=== PATIENT | female | born 1975 | race Caucasian/White ===

== ENCOUNTER 2017-02-13 21:16 | Emergency (ER) | payer OTHER ==
[~2017-02-13] VITALS: Ht 167.6 cm; Wt 98.4 kg
--- NOTE | ~2017-02-13 | CR72 ---
[facility] A Service of [facility] & [facility] RADIOLOGY TEXT RESULTS PATIENT: ELLEN DIXON LOCATION: SED : 73 UNIT #: [id number] AGE: [address]: Master Armstrong MD SEX: F ORDER DR: [id number] [address] [address] [id number] E MR#: [id number] Acc #: [id number] NAME: ELLEN DIXON. : 1975 SEX: F STUDY DATE/TIME: 02/13/2017 21:41 UNIT: SED ROOM: STUDY DESCRIPTION: CR Chest Single View Portable Attending Physician: Master Armstrong M.D. Ordering Physician: Master Armstrong M.D. Primary Care Physician: Van Chang M.D. MEDICAL IMAGING REPORT This report is preliminary unless electronic signature is present. EXAMINATION AP portable chest. DATE 02/13/2017 HISTORY 41-year-old female with chest pain tonight. COMPARISON PA and lateral chest, 06/20/2007. FINDINGS A single AP view of the chest shows both lungs to be clear. The heart is normal in size. The mediastinal contour is normal. No significant bone abnormalities are seen. IMPRESSION Normal AP portable chest. Dictated by... Sandra Mcbride M.D. THIS IS AN ELECTRONICALLY VERIFIED REPORT Sandra Mcbride M.D. at 02/16/2017 8:38 AM CALLIE/krystina TD: 02/14/2017 18:22 JOB #: [id number] MEDICAL IMAGING REPORT Page 1 of 1
--- NOTE | ~2017-02-13 | EKG ---
PATIENT: ELLEN DIXON UNIT #: [id number] Ventricular Rate: 77 BPM Atrial Rate: 77 BPM P-R Interval: 154 ms QRS Duration: 80 ms Q-T Interval: 388 ms QTC Calculation(Bezet): 439 ms P [place]: 46 degrees Calculated R [place]: 55 degrees Calculated T [place]: 34 degrees Diagnosis Line: Normal sinus rhythm Diagnosis Line: Normal ECG Diagnosis Line: No previous ECGs available Diagnosis Line: Confirmed by ISAMAR MIMS MD ([id number]) on Diagnosis Line: 02/16/2017 9:59:59 PM INTERPRETING MD: KELLEY
[~2017-02-13 21:16] MED LIST: A/T/S 2% GEL30 GM TOP; AURALGAN OTIC S10 M1 AD; CLEOCIN150 M1 PO; MOTRIN600 M1 PO; MUCINEX; NO MEDICATIONS; PHENERGAN PO; PREDNISONE PO; VICODIN 5/500 T1 TAB PO; VOLTAREN50 MG PO; ZITHROMAX PO
[2017-02-13] MEDS ORDERED: MAGNESIUM250 M1 (21:24)
[2017-02-13] MEDS ORDERED: PAXIL30 MG (21:24)
[2017-02-13 21:41] LABS: BASOPHIL# 0.1 X10e3 (0-0.3); BASOPHIL% 1.2 % (0-2.5); EOSINOPHIL# 0.3 X10e3 (0-0.7); EOSINOPHIL% 3.1 % (0.0-7.0); HEMATOCRIT 38.9 % (35.0-45.0); HEMOGLOBIN 13.1 gm/dL (12.0-16.0); LYMPHOCYTE# 2.6 X10e3 (1.0-3.5); LYMPHOCYTE% 32.2 % (17.0-45.0); MEAN CELL VOLUME 87.8 FL (83-96); MEAN CORPUSCULAR HEMOGLOBIN 29.7 PG (28-34); MEAN CORPUSCULAR HGB CONC 33.8 g/dL (30-36); MEAN PLATELET VOLUME 7.5 FL (6.5-11.5); MONOCYTE# 0.7 X10e3 (0-1.0); MONOCYTE% 8.4 % (3.0-12.0); NEUTROPHIL# 4.4 X10e3 (1.5-7.1); NEUTROPHIL% 55.1 % (40-75); PLATELET COUNT 230 X10e3 (140-420); RED BLOOD COUNT 4.43 X10e (3.90-5.30); RED CELL DISTRIBUTION WIDTH 13.2 % (11.0-15.5)
[2017-02-13 21:42] LABS: DIFF IND NO
[2017-02-13 21:50] LABS: INR 1.1; PROTHROMBIN TIME (PATIENT) 12.5 SECONDS (9.5-12.4)
[2017-02-13 21:56] LABS: ALBUMIN SERUM 3.9 g/dL (3.5-5.0); BILIRUBIN,TOTAL 0.3 mg/dL (0.2-2.0); CALCIUM SERUM 8.9 mg/dL (8.4-10.2); GLOM FILT RATE Estimated 69.5 mL/min (>60); POTASSIUM 3.8 mmol/L (3.5-5.1); PROTEIN TOTAL SERUM 7.2 g/dL (6.0-8.3)
[2017-02-13 21:56] LABS: POC - CKMB <1.0 ng/mL (0.0-7.9); POC - TROPONIN <0.05 ng/mL (<=0.05)
[2017-02-13 21:57] LABS: PARTIAL THROMBOPLASTIN TIME 27.8 SECONDS (25.6-38.1)
[2017-02-13 22:42] LABS: URINE SOURCE CLEAN CATCH
[2017-02-13 22:45] LABS: URINE APPEARANCE CLEAR; URINE BILIRUBIN NEG (NEG); URINE BLOOD NEG (NEG); URINE COLOR YELLOW; URINE GLUCOSE NEG (NORM); URINE KETONE NEG (NEG); URINE LEUKOCYTE ESTERASE TRACE (NEG); URINE NITRATE NEG (NEG); URINE PH 7.5 (5-8); URINE PROTEIN NEG (NEG); URINE SPECIFIC GRAVITY 1.015 (1.003-1.035); URINE UROBILINOGEN 0.2 MG/DL (NORM)
[2017-02-13 22:50] LABS: MICRO INDICATED? YES
[2017-02-13 22:51] LABS: CULTURE INDICATED? NO; URINE BACTERIA NEG (NEG)
[2017-02-13 22:52] LABS: URINE SQUAMOUS EPITHELIAL CELL MODERATE /[HPF]
[2017-02-13 22:55] LABS: AMPHETAMINE NEG (NEG); BARBITURATES NEG (NEG); BENZODIAZEPINES NEG (NEG); COCAINE NEG (NEG); MARIJUANA NEG (NEG); OPIATES NEG (NEG); TRICYCLIC ANTIDEPRESSANTS NEG (NEG); U METHADONE NEG (NEG)
[2017-02-13 23:38] LABS: POC - CKMB <1.0 ng/mL (0.0-7.9); POC - TROPONIN <0.05 ng/mL (<=0.05)
== END 2017-02-13 23:25 | disposition home or self-care (01) ==
LOC: SED 21:16
DX: K21.9 Gastro-esophageal reflux disease without esophagitis (principal); F41.9 Anxiety disorder, unspecified; Z88.0 Allergy status to penicillin
CPT/HCPCS: 71010; 80053; 80307; 81003; 82553; 84484; 84703; 85025; 85610; 85730; 93005; 96374; 99285

== ENCOUNTER 2017-03-16 17:46 | Emergency (ER) | payer OTHER ==
[~2017-03-16] VITALS: Ht 165.1 cm; Wt 108.9 kg
[~2017-03-16 17:46] MED LIST changes: +MAGNESIUM250 M1; +PAXIL30 MG
== END 2017-03-16 19:14 | disposition home or self-care (01) ==
LOC: SED 17:46
DX: J02.0 Streptococcal pharyngitis (principal); Z88.0 Allergy status to penicillin
CPT/HCPCS: 87880; 99283